=== PATIENT | female | born 1970 | race Caucasian/White ===

== ENCOUNTER 2018-10-28 10:13 | Emergency (ER) | payer MEDICARE, MEDICAID, SELFPAY ==
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
[2018-10-28 10:18] VITALS: BP 144/91; PULSE 97; RESP 12; TEMP 37.2; O2SAT 97
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
[2018-10-28] MEDS: Acetaminophen 500 MG TAB 1000 MG PO (10:30)
--- NOTE | 2018-10-28 10:43 | DI.RAD_ITS ---
SYMPTOMS/DIAGNOSIS: PAIN RIGHT FOOT: Three views. No acute fracture or dislocation is seen. There are mild degenerative changes seen of the foot. There is a plantar calcaneal spur. There is an enthesophyte at the posterior superior calcaneus. No radiopaque foreign bodies are seen in the soft tissues. IMPRESSION: No acute abnormality.
--- NOTE | 2018-10-28 11:00 | NUR.NOTE ---
patient refuses highttop walking boot, patient will use old low top walking boot. patient discharged with her belongoings
== END 2018-10-28 11:10 | disposition home or self-care (01) ==
PROVIDERS: Emergency Provider Emergency Medicine; PCP Internal Medicine
DX: S90.121A Contusion of right lesser toe(s) without damage to nail, initial encounter (principal); X58.XXXA Exposure to other specified factors, initial encounter
CPT/HCPCS: 99282; 73630

== ENCOUNTER → 2018-11-25 10:27 | Outpatient (BNVA) | payer MEDICARE, MEDICAID, SELFPAY | PROVIDERS: PCP Internal Medicine; Visit Provider Psychiatry & Neurology Neurology | DX: G35 Multiple sclerosis (principal); G43.709 Chronic migraine without aura, not intractable, without status migrainosus; R53.82 Chronic fatigue, unspecified | CPT/HCPCS: 99214 ==

== ENCOUNTER → 2019-11-01 13:37 | Outpatient (BNVA) | payer MEDICARE, MEDICAID, SELFPAY | PROVIDERS: PCP Internal Medicine; Referring Provider Internal Medicine; Visit Provider Psychiatry & Neurology Neurology | DX: G56.01 Carpal tunnel syndrome, right upper limb (principal); G35 Multiple sclerosis; G43.109 Migraine with aura, not intractable, without status migrainosus; R53.82 Chronic fatigue, unspecified; F42.4 Excoriation (skin-picking) disorder | CPT/HCPCS: 95908; 99214; L3908 ==

== ENCOUNTER → 2020-09-27 07:32 | Outpatient (BNVA) | payer MEDICARE, MEDICAID, SELFPAY | PROVIDERS: PCP Internal Medicine; Referring Provider Internal Medicine; Visit Provider Psychiatry & Neurology Neurology | DX: G35 Multiple sclerosis (principal); G43.109 Migraine with aura, not intractable, without status migrainosus; R53.82 Chronic fatigue, unspecified | CPT/HCPCS: 99443 ==

== ENCOUNTER → 2021-09-12 08:17 | Outpatient (BNVA) | payer MEDICARE, MEDICAID, SELFPAY | PROVIDERS: PCP Internal Medicine; Referring Provider Internal Medicine; Visit Provider Psychiatry & Neurology Neurology | DX: R69 Illness, unspecified (principal) ==

== ENCOUNTER → 2021-09-25 07:22 | Outpatient (BNVA) | payer MEDICARE, MEDICAID, SELFPAY | PROVIDERS: PCP Internal Medicine; Referring Provider Internal Medicine; Visit Provider Psychiatry & Neurology Neurology | DX: R69 Illness, unspecified (principal) ==